=== PATIENT | female | born 1940 | race Caucasian/White ===

== ENCOUNTER → 2017-12-27 | Outpatient (CLI) | payer OTHER ==
[2017-12-27] MEDS: REGADENOSON 0.4 MG/5 ML DISP.SYRIN. IV (10:11)
== END | disposition home or self-care (01) ==
LOC: NM 07:31
DX: R06.09 Other forms of dyspnea (principal); J45.909 Unspecified asthma, uncomplicated; E11.9 Type 2 diabetes mellitus without complications
CPT/HCPCS: 78452; 93017; 96374; 96375; 96376; A9500; J2785